=== PATIENT | female | born 1930 | race Caucasian/White ===

== ENCOUNTER → 2016-11-19 | Outpatient (CLI) | payer OTHER, MEDICARE | LOC: BMCIMAGING 10:05 | PROVIDERS: ATTEND Internal Medicine | DX: M50.322 Other cervical disc degeneration at C5-C6 level (principal); M50.323 Other cervical disc degeneration at C6-C7 level; M89.38 Hypertrophy of bone, other site; M48.54XA Collapsed vertebra, not elsewhere classified, thoracic region, initial encounter for fracture; R91.8 Other nonspecific abnormal finding of lung field | CPT/HCPCS: 82607-90 ==

== ENCOUNTER 2018-01-27 12:00 | Emergency (ER) | payer OTHER, MEDICARE ==
[2018-01-27 12:44] LABS: PLATELET COUNT 241 10^3/uL (150-400)
--- NOTE | 2018-01-27 12:49 | EDPHY ---
H & P Stated Complaint: word finding difficulty @ 1115, now resolved. Time Seen by Provider: 01/27/18 12:31 - Medical/Surgical History Hx Asthma: No Hx Chronic Respiratory Disease: No Hx Diabetes: No Hx Cardiac Disease: No Hx Renal Disease: No Hx Cirrhosis: No Hx Alcoholism: No Hx HIV/AIDS: No Hx Splenectomy or Spleen Trauma: No Other PMH: PMH: low blood pressure, glaucoma, hip fx 2011, breast CA, esophagitis, - Social History Smoking Status: Never smoked Constitutional: Initial Vital Signs Temperature (C) 36.9 C 01/27/18 12:04 Heart Rate 71 01/27/18 12:04 Respiratory Rate 18 01/27/18 12:04 Blood Pressure 190/99 H 01/27/18 12:04 O2 Sat (%) 99 01/27/18 12:04 O2 Delivery Mode Room Air Allergies/Adverse Reactions: ciprofloxacin [From Cipro] Allergy (Verified 01/27/18 12:20) erythromycin base Allergy (Verified 01/27/18 12:19) Home Medications: Medication Instructions Recorded Atorvastatin Calcium [Lipitor 10 10 mg PO DAILY #30 tab 01/27/18 mg (*)] Calcium 01/27/18 Nexium 01/27/18 Medical Decision Making - Diagnostics Imaging Results: Imaging Impressions Brain MRI 01/27/18 12:38 Impression: Moderate periventricular and deep hemispheric white matter change, which is nonspecific, but can be seen with small vessel ischemic disease. No evidence for acute infarct. Generalized cerebral atrophy. Results called and discussed with Dr. Torsten Nunez on January 27, 2018 at 1429 hours. Imaging: Discussed imaging studies w/ crew caller Radiologist, I viewed and interpreted images myself ED Course/Re-evaluation: CHIEF COMPLAINT: Word finding difficulty HISTORY OF PRESENT ILLNESS: 87-year-old healthy and pleasant female who at 11: 15 a.m. Today approximately an hour and a half ago had difficulty finding her words and operating the telephone. She was trying to call her son which she frequently does. She finally was able to call him but was having difficulty finding his number and making the phone work. Eventually she made the phone work and then when she called him he did not understand what she was saying. According to the son who is in the room she was making up words that did not really go together. The patient confirms that she could not think of what she was trying to say. All of her symptoms resolved about 20 min later. EMS arrived and she had no symptoms. Additionally, she has no symptoms here for the nurse who evaluated her before I came into the room. She feels perfectly back to normal. She denies any recent trauma. She denies any recent headaches. She does state that she has felt somewhat lightheaded over the last several weeks off and on and that she even fell 2 weeks ago. REVIEW OF SYSTEMS: A 10 point review of systems was performed and is negative with the exception of the elements mentioned in the history of present illness. PHYSICAL EXAM: HR, BP, O2 Sat, RR. Temp noted General Appearance: Alert, well hydrated, appropriate, and non-toxic appearing. Head: Atraumatic without scalp tenderness or obvious injury Eyes: Pupils equal, round, reactive to light and accommodation, EOMI, no trauma , no injection. Ears: Clear bilaterally, no perforation, normal landmarks Nose: Atraumatic, no rhinorrhea, clear. Throat: There is no erythema or exudates, no lesions, normal tonsils, mucus membranes moist. Neck: Supple, 2+ carotid upstroke, nontender, no lymphadenopathy. Respiratory: No retractions, no distress, no wheezes, and no accessory muscle use. Lungs are clear to auscultation bilaterally. Cardiovascular: Regular rate and rhythm, no murmurs, rubs, or gallops. Bilateral carotid, radial, dorsalis pedis, and posterior tibial pulses intact. Good capillary refill all extremities. Gastrointestinal: Abdomen is soft, nontender, non-distended, no masses, no rebound, no guarding, no peritoneal signs. Musculoskeletal: Normal active ROM of all extremities, atraumatic. Neurological: Alert, appropriate, and interactive. The patient has normal DTRs and non-focal cranial nerves, motor, sensory, and cerebellar exam. Skin: No rashes, good turgor, no nodules on palpation. Past medical history: Gastroesophageal reflux disease and insomnia Past surgical history: Noncontributory Family history: Noncontributory Social history: , not employed, lives at an independent living facility , does not use tobacco drugs or alcohol DIAGNOSTICS/PROCEDURES/CRITICAL CARE TIME: Study: MRI of the: Brain Indication: Word finding difficulty Results: MRI scan of the brain was obtained. The results of the study are no acute process. The study was read by the radiologist, Dr. Romero. I viewed the images myself on the PACS system. The 12 lead EKG was interpreted by myself. Sinus rhythm rate 64, mildly worsening LVH compared to 2012. See hard copy and/or "tracemaster" electronic copy for interpretation. Critical care time spent by me, Dr. Nunez, exclusively with this patient was 45 minutes, exclusive of PA time and exclusive of procedures. The organ system at risk was brain. Time spent in urgent assessment and serial assessments of patient, discussion with patient and family, consideration of interventions, review of imaging, EKG, and lab work, and consultation with neurology. DIFFERENTIAL DIAGNOSIS: The differential diagnosis for the patient's neurologic deficits included but was not limited to peripheral causes, central causes including CVA, TIA, electrolyte abnormalities and dehydration, cardiogenic causes, atypical causes like migraine syndrome. MEDICAL DECISION MAKING: From the patient's account and her son's account who is on the phone with her it sounds like this patient had a classic word-finding problem potentially a Wernicke's aphasia. She did not have any motor deficits when it comes to operating the phone but she just could not think of what she wanted to do or how to get his phone number. Laboratory studies are pending. Patient is in sinus rhythm on my exam. EKG is pending. Patient has never had symptoms like this before. Patient has no history of vascular disease according to her. Brain MRI is pending. MRI is negative for acute process. Exam remains unchanged on reassessment. She is reluctant to be admitted to the hospital for full TIA work up. Will discuss options with neurology. 1435: Consulted with Dr. Sarkar, neurologist, regarding options for outpatient vs. inpatient. He agrees patient could be discharged home on aspirin and statin to complete out patient work up if carotid studies here are normal. Discussed the options with the patient and offered admission. She would prefer to do the carotid studies and then go home if possible. 1550: CTA carotids shows no obstructive stenosis. There is an incidental finding of a lung mass in her upper __ lobe that will require outpatient follow up. CT results discussed with the patient. She continues to feel well. She will be discharged with script for Lipitor and instructions to take daily full dose aspirin until she follows up with cardiology for atrial fibrillation work up. - Data Points Laboratory Results: Laboratory Results 05/17/18 11:45 01/27/18 11:45 18 01/27/18 11:45 11:45 WBC 5.31 10^3/uL 10^3/uL (3.80-9.50) RBC 3.81 10^6/uL L 10^6/uL (4.18-5.33) Hgb 11.9 g/dL L g/dL (12.6-16.3) Hct 36.7 % L % (38.0-47.0) MCV 96.3 fL fL (81.5-99.8) MCH 31.2 pg pg (27.9-34.1) MCHC 32.4 g/dL g/dL (32.4-36.7) RDW 13.5 % % (11.5-15.2) Plt Count 241 10^3/uL 10^3/uL (150-400) MPV 9.6 fL fL (8.7-11.7) Neut % (Auto) 45.9 % % (39.3-74.2) Lymph % (Auto) 36.2 % % (15.0-45.0) [place] % (Auto) 11.9 % % (4.5-13.0) Eos % (Auto) 4.7 % % (0.6-7.6) Baso % (Auto) 1.1 % % (0.3-1.7) Nucleat RBC Rel Count 0.0 % % (0.0-0.2) Absolute Neuts (auto) 2.44 10^3/uL 10^3/uL (1.70-6.50) Absolute Lymphs (auto) 1.92 10^3/uL 10^3/uL (1.00-3.00) Absolute Monos (auto) 0.63 10^3/uL 10^3/uL (0.30-0.80) Absolute Eos (auto) 0.25 10^3/uL 10^3/uL (0.03-0.40) Absolute Basos (auto) 0.06 10^3/uL 10^3/uL (0.02-0.10) Absolute Nucleated RBC 0.00 10^3/uL 10^3/uL (0-0.01) Immature Gran % 0.2 % % (0.0-1.1) Immature Gran # 0.01 10^3/uL 10^3/uL (0.00-0.10) Sodium 142 mEq/L mEq/L (135-145) Potassium 4.5 mEq/L mEq/L (3.3-5.0) Chloride 105 mEq/L mEq/L (97-110) Carbon Dioxide 24 mEq/l mEq/l (22-31) Anion Gap 13 mEq/L mEq/L (8-16) BUN 20 mg/dL mg/dL (7-23) Creatinine 1.1 mg/dL H mg/dL (0.6-1.0) Estimated GFR 47 Glucose 85 mg/dL mg/dL (70-100) Calcium 9.5 mg/dL mg/dL (8.5-10.4) Medications Given: Sodium Chloride (Ns) 500 mls @ 1,500 mls/hr IV ONCE ONE Stop: 01/27/18 15:53 Last Admin: 01/27/18 15:37 Dose: 500 mls Discontinued Medications Aspirin (Aspirin) 324 mg PO EDNOW ONE Stop: 01/27/18 14:48 Last Admin: 01/27/18 14:51 Dose: 324 mg Atorvastatin Calcium (Lipitor) 10 mg PO EDNOW ONE Stop: 01/27/18 14:50 Last Admin: 01/27/18 15:37 Dose: 10 mg Departure - Departure Disposition: Home, Routine, Self-Care Clinical Impression: TIA (transient ischemic attack) Qualifiers: Transient cerebral ischemia type: other Qualified Code(s): G45.8 - Other transient cerebral ischemic attacks and related syndromes Condition: Good Instructions: Transient Ischemic Attack (ED) Additional Instructions: 1. Take 325mg aspirin daily until directed otherwise by your neurologist/ retail worker. 2. Take Lipitor daily as directed until follow up appointment with your specialists. 3. Follow up with Dr. Sarkar, neurologist, in the next week. 4. Follow up with retail worker for atrial fibrillation work up within the next 30 days. I recommend calling today to schedule this appointment. 5. Return to the ED for any recurrent symptoms, severe headache, weakness, numbness, vision changes, speech difficulty, or other worsening of condition. There was an incidental finding of an abnormality of your lung seen on your neck CT today. Please follow up with your primary care provider to discuss this. Referrals: Yuri Sarkar MD [Medical Doctor] - As per Instructions Riki Reza MD [Medical Doctor] - As per Instructions Prescriptions: Atorvastatin Calcium [Lipitor 10 mg (*)] 10 mg PO DAILY #30 tab Report Scribed for: Torsten Nunez Report Scribed by: Summer Yang Date of Report: 01/27/18 Time of Report: 14:55
--- NOTE | 2018-01-27 13:05 | CPEKG ---
Heart Rate: 64 RR Interval: 938 P-R Interval: 164 QRSD Interval: 94 QT Interval: 432 QTC Interval: 446 P [place]: 85 QRS [place]: -39 T Wave [place]: 44 EKG Severity - ABNORMAL ECG - EKG Impression: SINUS RHYTHM EKG Impression: LEFT AXIS DEVIATION EKG Impression: PROBABLE LEFT VENTRICULAR HYPERTROPHY Electronically Signed By: Torsten Nunez 27-Jan-2018 18:58:14
[2018-01-27] MEDS ORDERED: ASPIRIN 81 MG CHEWABLE TAB PO ONE (14:47)
[2018-01-27] MEDS ORDERED: ATORVASTATIN CALCIUM 10 MG TAB PO ONE (14:49)
[2018-01-27] MEDS ORDERED: IOPAMIDOL (ISOVUE 370) 100 ML BTL IV ONE (14:57)
[2018-01-27] MEDS ORDERED: NS 500 ML IV ONE (15:34)
[2018-01-27 16:14] VITALS: BP 144/65
--- NOTE | 2018-01-28 10:11 | GCON ---
[f rep st] CONSULTATION PHONE CONSULTATION NOTE FOR EMERGENCY DEPARTMENT I was contacted by Dr. Nunez in the emergency department as he was seeing the patient, an 87-year-old lady who came to the ED for transient word-finding difficulty without any other neurologic symptoms that resolved in 20 minutes. She had resolved by the time she came to the emergency department. The patient had a brain MRI in the emergency department, which showed some white matter changes consistent with age, but no evidence of acute infarct. On telemetry, there was no atrial fibrillation. The patient was recommended inpatient evaluation for a transient ischemic attack, but is not interested in admission to the hospital. Therefore, Dr. Nunez wanted to discuss what we could do in the emergency department for TIA workup. I recommended CTA of the head and neck initially. If there are no acute vascular abnormalities, and if the patient still prefers discharge home from the emergency department, then I recommend starting her on aspirin, statin therapy, and outpatient cardiology followup with a 30-day event monitor and echo. We would be happy to see her as an outpatient to review the workup. She should return to the emergency department for any acute neurologic symptoms. /[id number]/MODL MTDD
== END 2018-01-27 16:15 | disposition home or self-care (01) ==
LOC: EDUNIT#
DX: G45.8 Other transient cerebral ischemic attacks and related syndromes (principal); Z85.3 Personal history of malignant neoplasm of breast
CPT/HCPCS: 70498; 70551; 93005; 96360; 99291; Q9967

== ENCOUNTER → 2018-02-25 | Outpatient (CLI) | payer OTHER, MEDICARE ==
--- NOTE | 2018-03-02 20:34 | CPEEG ---
[f rep st] ELECTROENCEPHALOGRAM ELECTROENCEPHALOGRAM. DATE OF STUDY: 02/25/2018 DATE OF INTERPRETATION: March 02, 2018. INTERPRETATION: Normal EEG during wakefulness and sleep. There were no potentially epileptogenic ab normalities present in the recording. REPORT: This EEG contains 9 Hz alpha activity to the posterior head regions. There was no abnormal activation at rest, during photic stimulation or hyperventilation. The patient became drowsy and int ermittently fell asleep during the study. There was no abnormal activation during drowsiness, sleep, or during times of arousal. /[id number]/MODL
== END ==
LOC: FCPNEURO 10:59
PROVIDERS: ATTEND Psychiatry & Neurology Neurology
DX: R42 Dizziness and giddiness (principal)

== ENCOUNTER → 2018-04-08 | Outpatient (CLI) | payer OTHER, MEDICARE ==
[~2018-04-08] MED LIST: GADOBUTROL 10 ML VIAL IVP ONE
== END ==
LOC: FIMAGING 13:05
PROVIDERS: ATTEND Psychiatry & Neurology Neurology
DX: G31.9 Degenerative disease of nervous system, unspecified (principal); R90.82 White matter disease, unspecified
CPT/HCPCS: 70544; 70553; A9585; 82565-PO